=== PATIENT | female | born 1950 | race Caucasian/White ===

== ENCOUNTER 2022-08-24 15:28 | Emergency (ER) | payer MEDICARE, BC ==
[~2022-08-24] VITALS: Ht 160 cm; Wt 68.0 kg
[~2022-08-24 15:28] MED LIST: CRANBERRY; CYCL10TA9 PO; DILANTIN; DIOVAN; HYDR1TAB8 OP; LEXAPRO; VITAMIN D
[2022-08-24 15:35] VITALS: BP 188/92
--- NOTE | 2022-08-24 16:11 | Diagnostic Imaging Report ---
INDICATION: Pain. COMPARISON: None available. TECHNIQUE: Three radiographs of the left ankle dated August 24, 2022. FINDINGS: Transversely oriented lucency is identified extending through the tip of the lateral malleolus without significant displacement. The talar dome is unremarkable. The ankle mortise is symmetric. No additional fracture or dislocation. No destructive osseous process. Minimal soft tissue swelling. No suspicious radiopaque foreign body. IMPRESSION: Age-indeterminate nondisplaced fracturing involving the very tip of the lateral malleolus. Minimal soft tissue swelling about the ankle. Dictated by: Dictated on workstation # [id number]
--- NOTE | 2022-08-24 16:22 | ED Lower Extremity ---
General Chief Complaint: Lower Extremity Stated Complaint: LEFT ANKLE INJURY Nursing Triage Note: PT TO FT 1 VIA WC W C/O LEFT ANKLE PAIN SX LAST NIGHT AT APPROX 2200 WHEN SHE TWISTED HER ANKLE. PT DENIES PAIN AT REST, REPORTS PAIN W AMBULATION. PT A&OX4. Source: patient Exam Limitations: no limitations (ELINOR BURNETTE APRN) History of Present Illness Date Seen by Provider: Aug 24, 2022 Time Seen by Provider: 16:15 Initial Comments Patient is a 71-year-old female who presents to the emergency department with left lateral ankle pain after she twisted it yesterday evening. She states her foot partially slipped out of her shoe causing her to stumble. She states she has had pain since that time. She has also noticed some swelling. She presented to an urgent care but was told there x-ray machine was not working and thus she came here for further evaluation. She states she has taken a dose of Tylenol earlier today for the symptoms. Denies wanting anything else for pain at this time. No other pain or injury per patient's report. (ELINOR BURNETTE APRN) Allergies and Home Medications Allergies Coded Allergies: iodine (Verified Allergy, Mild, 02/20/15) Patient Home Medication List Home Medication List Reviewed: Yes (ELINOR BURNETTE APRN) Cyclobenzaprine Hcl (Cyclobenzaprine Hcl) 10 Mg Tablet, 1 EACH PO Q8H Prescribed by: PRADEEP BURNHAM on 02/20/151958 Hydrocodone Bit/Ibuprofen (Vicoprofen 200-7.5 Mg Tab) 1 Each Tablet, 1-2 EACH OP Q4-6HR PRN for PAIN Prescribed by: PRADEEP BURNHAM on 02/20/151958 [Cranberry] , (Reported) Entered as Reported by: JAY GIBSON on 02/20/151923 [Dilantin] , (Reported) Entered as Reported by: JAY GIBSON on 02/20/151923 [Diovan] , (Reported) Entered as Reported by: JAY GIBSON on 02/20/151923 [Lexapro] , (Reported) Entered as Reported by: JAY GIBSON on 02/20/151923 [Vitamin D] , (Reported) Entered as Reported by: JAY GIBSON on 02/20/151923 Review of Systems Constitutional: no symptoms reported EENTM: no symptoms reported Respiratory: no symptoms reported Cardiovascular: no symptoms reported Gastrointestinal: no symptoms reported Genitourinary: no symptoms reported Musculoskeletal: no symptoms reported Skin: no symptoms reported Psychiatric/Neurological: No Symptoms Reported (ELINOR BURNETTE APRN) Past Urbtfct-Jkrspv-Svfhck Hx Patient Social History Tobacco Use?: No Use of E-Cig and/or Vaping dev: No Substance use?: No Alcohol Use?: No (ELINOR BURNETTE APRN) Immunizations Up To Date Influenza Vaccine Up-to-Date: Yes; Up-to-Date First/Initial COVID19 Vaccinat: 2020 Second COVID19 Vaccination Prashant: 2020 Third COVID19 Vaccination Date: 2021 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 oz. 77.551543pl; 26.00 BMI Method: General Appearance: WD/WN, no apparent distress HEENT: PERRL/EOMI, normal ENT inspection, TMs normal, pharynx normal Neck: non-tender, full range of motion, supple, normal inspection Cardiovascular: regular rate, rhythm Respiratory: chest non-tender, lungs clear, normal breath sounds, no respiratory distress, no accessory muscle use Gastrointestinal: normal bowel sounds, non tender, soft Ankles: left ankle pain, left ankle soft tissue tenderness, left ankle swelling (ELINOR BURNETTE APRN) Progress/Results/Core Measures Results/Orders Vital Signs/I&O 08/24/22 15:35 Temp 37.0 Pulse 95 Resp 20 B/P (MAP) 188/92 (124) Pulse Ox 99 O2 Delivery Room Air (JUAN CARLOS RAMOS MD) Blood Pressure Mean: 124 Progress Progress Note : Progress Note Patient is nontoxic and well-hydrated on exam. She was ambulatory to the room but required a cane due to pain with bearing weight on the affected extremity. There is some swelling about the lateral malleolus of the left ankle. She is currently visiting her family and resides in [place]. She states she is flying back home on . X-rays revealed a distal lateral malleolar fracture that is nondisplaced. Patient was placed in a boot. It was discussed that she needs to follow-up with her PCP or an orthopedist upon arriving back home. Return precautions for urgent symptomology discussed. Patient verbalized understanding. (ELINOR BURNETTE APRN) Departure Impression Primary Impression: Closed fracture of left lateral malleolus Qualified Codes: S82.65XA - Nondisplaced fracture of lateral malleolus of left fibula, initial encounter for closed fracture Disposition: HOME, SELF-CARE Condition: Stable Departure-Patient Inst. Decision time for Depature: 16:20 (ELINOR BURNETTE APRN) Referrals: NO,LOCAL PHYSICIAN (PCP/Family) Primary Care Physician Patient Instructions: Ankle Fracture ED ATTENDING PHYSICIAN NOTE: I was physically present as attending physician in the emergency department during the care of this patient, but I was not directly involved in the decision making or delivery of care for this patient. (JUAN CARLOS RAMOS MD) ELINOR BURNETTE APRN Aug 24, 2022 16:22 JUAN CARLOS RAMOS MD Aug 24, 2022 16:48
== END 2022-08-24 16:25 | disposition home or self-care (01) ==
LOC: EDUNIT# 15:28 → ER 15:31
DX: S82.65XA Nondisplaced fracture of lateral malleolus of left fibula, initial encounter for closed fracture (principal); X50.1XXA Overexertion from prolonged static or awkward postures, initial encounter
CPT/HCPCS: 73610; 99283; L2114